=== PATIENT | female | born 1995 | race Caucasian/White ===

== ENCOUNTER 2018-09-17 13:03 | Emergency (ER) | payer BC ==
[2018-09-17] MEDS ORDERED: Lidocaine 1% 20 ML MDV ONE (13:18)
--- NOTE | 2018-09-17 13:26 | EDM.PDOC ---
ED HPI GENERAL MEDICAL PROBLEM - General Chief Complaint: General Stated Complaint: facial laceration Time Seen by Provider: 09/17/18 13:15 Source of Information: Reports: Patient History Limitations: Reports: No Limitations - History of Present Illness INITIAL COMMENTS - FREE TEXT/NARRATIVE: Karen is a 23 yo female who presents to the ED with complaints of a laceration to her right cheek, under her right eye. She states she was accidentally hit by the gate on her dog kennel. She denies any loss of consciousness. States she is more concerned if she will have a scar as she is getting this January. States her tetanus is up to date, admits she got it last year. Location: Reports: Face Improves with: Reports: Cold Therapy Past Medical History - Past Health History Medical/Surgical History: Denies Medical/Surgical History ED ROS GENERAL - Review of Systems Review Of Systems: ROS reveals no pertinent complaints other than HPI. Skin: Reports: Wound (cut under right eye ) Neurological: Reports: No Symptoms Psychiatric: Reports: No Symptoms ED EXAM, GENERAL - Physical Exam Exam: See Below Exam Limited By: No Limitations General Appearance: Alert, No Apparent Distress Eye Exam: Bilateral Eye: EOMI, PERRL Neurological: Alert, Oriented, Normal Cognition, No Motor/Sensory Deficits Psychiatric: Normal Affect, Normal Mood Skin Exam: Warm, Wound/Incision (1.5c linear laceration along right zygomatic arch just distal to right eye. ) ED GENERAL MEDICAL PROCEDURES - Laceration/Wound Repair Right Face Lac/wound length in cm: 1.5 Appearance: Superficial, Linear Distal NVT: Neuro & Vascular Intact, No Tendon Injury Anesthetic Type: Local Local Anesthesia - Lidocaine (Xylocaine): 1% Plain Local Anesthetic Volume: 1cc Skin Prep: Chlorhexidine (Hibiciens), Providone-Iodine (Betadine) Exploration/Debridement/Repair: Wound Explored, In a Bloodless Field, Explored to Base, No Foreign Material Found Closed with: Sutures Suture Size: other (6-0) # of Sutures: 5 Suture Type: Prolene, Interrupted Tetanus Status Addressed: Yes Complications: No Course - Orders/Labs/Meds Meds: Medications Discontinued Medications Generic Name Dose Route Start Last Admin Trade Name Freq PRN Reason Stop Dose Admin Lidocaine HCl Confirm 09/17/18 13:18 Xylocaine 1% Administered 09/17/18 13:19 Dose 20 ml .ROUTE .STK-MED ONE Departure - Departure Time of Disposition: 14:01 Disposition: Home, Self-Care 01 Clinical Impression: Laceration of face Qualifiers: Encounter type: initial encounter Qualified Code(s): S01.81XA - Laceration without foreign body of other part of head, initial encounter - Discharge Information Instructions: Laceration Care, Adult, Sutured Wound Care, [id number], Facial Laceration, [id number] Forms: ED Department Discharge Additional Instructions: 1) Keep wound clean and dry for 48 hours as discussed 2) Sutures out in 7 days 3) If any concerns, increased redness, swelling, warmth, drainage, etc... advise returning for reevaluation. 4) Discussed applying ice as well for swelling. - Problem List & Annotations (1) Laceration of face SNOMED Code(s): 045247853 Code(s): S01.81XA - LACERATION W/O FOREIGN BODY OF OTH PART OF HEAD, INIT ENCNTR Status: Acute Qualifiers: Encounter type: initial encounter Qualified Code(s): S01.81XA - Laceration without foreign body of other part of head, initial encounter - Assessment/Plan Plan: Discussed findings with Karen. Elected to proceed with sutures for closure. Discussed risks involved to include scarring, infection, etc.. Wound was closed in a sterile field with 5, 6-0 Prolene sutures. No complications.
[2018-09-17] MEDS ORDERED: Bacitracin/Neomycin/Polymyxin B Oint 0.9 GM U/D Packet ONE (13:50)
== END 2018-09-17 14:10 | disposition home or self-care (01) ==
LOC: CC.ED 13:03
DX: S01.411A Laceration without foreign body of right cheek and temporomandibular area, initial encounter (principal); W22.8XXA Striking against or struck by other objects, initial encounter
CPT/HCPCS: 12011; 99283